=== PATIENT | male | born 1990 | race Caucasian/White ===

== ENCOUNTER 2016-08-31 07:44 | Emergency (ER) | payer SELFPAY ==
[2016-08-31] MEDS ORDERED: Tetan/Diph/Pertus SYR(Tdap)* 0.5 ML SYR(BOOSTRIX) use SYR IM ONE (08:10)
--- NOTE | 2016-08-31 08:41 | RAD ---
INDICATION: Fish tank versus right wrist and forearm COMPARISON: None. TECHNIQUE: 4 views right wrist. REPORT: On the oblique view of the wrist there is multiple punctate radiodense foci that could be compatible with foreign bodies in a laceration. On the AP view of the wrist there is a triangular radiographic focus overlying the site of an apparent skin laceration. This could represent a foreign body in this clinical setting. Also depicted on the AP view of the wrist there is a tiny linear focus between the proximal portions of the second and third metacarpals which could also represent a small foreign body in this clinical setting. The visualized bones are properly aligned and well corticated. The joint spaces are normal.There is no fracture, dislocation or other focal osseous abnormality. IMPRESSION: Potential subcutaneous foreign bodies as described above.
[2016-08-31 10:17] VITALS: BP 113/85
--- NOTE | 2016-08-31 10:25 | ED ---
Darion Diaz SooYoung, scribed for Bijan Mitchell MD on 08/31/16 at 0802 . Laceration/Wound HPI - HPI Summary HPI Summary: A 25 y/o M presents to ED with c/o lac to R forearm onset approx 30 minutes [employer]. Pt was at work at [employer] and lifting a glass aquarium into a dumpter when it shattered and cut his arm. Associated sx: numbness to R thumb. He is able to wiggle his fingers. R-hand dominant. He doesn't believe there's any glass or foreign bodies in the cut. He is unsure of his last tetanus. Pt came in with his arm wrapped in a towel. - History of Current Complaint Stated Complaint: RT HAND LAC Time Seen by Provider: 08/31/16 07:58 Hx Obtained From: Patient, Other: - co-worker Onset/Duration: Sudden Onset, Lasting Minutes, Still Present Timing: Constant Onset Severity: Mild Current Severity: Mild Pain Intensity: 3 Pain Scale Used: 0-10 Numeric Associated Signs & Symptoms: Numbness - R thumb, Pain Related Hx: Occupational Injury, Dominant Hand (Right) - Allergy/Home Medications Allergies/Adverse Reactions: Allergies Allergy/AdvReac Type Severity Reaction Status Date / Time No Known Allergies Allergy Verified 10/18/14 03:15 PMH/Surg Hx/FS Hx/Imm Hx Previously Healthy: Yes Respiratory History: Denies: Hx Chronic Obstructive Pulmonary Disease (COPD) Opthamlomology History: Denies: Hx Legally Blind Infectious Disease History: No Infectious Disease History: Denies: Traveled Outside the [place] in Last 30 Days - Family History Known Family History: Positive: None Negative: Cardiac Disease, Hypertension, Diabetes - Social History Occupation: Employed Full-time Lives: With Family Alcohol Use: Occasionally Hx Substance Use: No Substance Use Type: Reports: None Hx Tobacco Use: No Smoking Status (MU): Never Smoked Tobacco Review of Systems Negative: Fever Positive: Other - pos: numbness to R thumb Positive: Other - lac to R forearm All Other Systems Reviewed And Are Negative: Yes Physical Exam - Summary Physical Exam Summary: The patient is well-nourished in no acute distress and in no acute pain. The skin is warm and dry and skin color reflects adequate perfusion. HEENT: The head is normocephalic and atraumatic. The pupils are equal and reactive. The conjunctivae are clear and without drainage. Nares are patent and without drainage. Mouth reveals moist mucous membranes and the throat is without erythema and exudate. The external ears are intact. The ear canals are patent and without drainage. The tympanic membranes are intact. Neck is supple with full range of motion and non-tender. There are no carotid bruits. There is no neck vein distension. Respiratory: Chest is non-tender. Lungs are clear to auscultation and breath sounds are symmetrical and equal. Cardiovascular: Heart is regular rate and rhythm. There is no murmur or rub auscultated. There is no peripheral edema and pulses are symmetrical and equal. Musculoskeletal: DECREASED SENSATION DISTAL TO WOUND. Motor function intact with THUMB FLEXION AND EXTENSION, ABDUCTION/ADDUCTION; RADIAL and ULNA DEVIATION. there are good RADIALand ulna PULSES. the wound is IRREGULAR and STELLATE which measures 4CM LACERATION ON RADIAL ASPECT OF FOREARM DISTALLY, PROXIMAL TO THUMB; afars TO BE ABOUT 1CM WIDE; GOOD CAPILLARY REFILL. there was no tendon involvement and there was no foreign body noted. Neurological: Patient is alert and oriented to person, place and time. Psychiatric: The patient has an appropriate affect and does not exhibit any anxiety or depression. Triage Information Reviewed: Yes Vital Signs On Initial Exam: Initial Vitals Temp Pulse Resp BP Pulse Ox 97.6 F 60 20 126/72 98 08/31/16 07:46 08/31/16 07:46 08/31/16 07:46 08/31/16 07:46 08/31/16 07:46 Vital Signs Reviewed: Yes Procedures - Laceration/Wound Repair 1 Location: upper extremity - R forearm Description: Stellate Anesthesia: Local, 1.0% Length, Depth and Shape: 3cm x 1/2 cm Betadine Prep?: Yes Irrigated w/ Saline (ccs): 100 Laceration/Wound Explored: no foreign body removed Closure: Single Layer Suture Type: Prolene - 4-0 Number of Sutures: 3 - vertical mattress Layer Closure?: No Sterile Dressing Applied?: No Diagnostics - Vital Signs Vital Signs Temp Pulse Resp BP Pulse Ox 08/31/16 07:48 97.6 F 66 20 126/72 98 08/31/16 07:46 97.6 F 60 20 126/72 98 - Laboratory Lab Statement: Any lab studies that have been ordered have been reviewed, and results considered in the medical decision making process. - Radiology WRIST XR Xray Interpretation: No Acute Changes Radiology Interpretation Completed By: Radiologist Laceration Repair Course/Dx - Course Course Of Treatment: Pt is a 25 y/o M presenting with lac to R forearm sustained at work. Lifted a glass aquarium into a dumpter when it shattered and cut his arm. Associated sx: numbness to R thumb. He is able to wiggle his fingers. R-hand dominant. Unknown if UTD on tetanus. Pt given tdap in ED. Wrist XR shows "Potential subcutaneous foreign bodies as described above." See full [facility] in [facility]. Lac repair performed by HUY Gee. Antonio D/C home , remove stiches in 10-14 days. - Differential Dx Differental Diagnoses: Foreign Body, Laceration - Clinical Impression Provider Diagnoses: 4 CM R WRIST LACERATION WITH REPAIR Discharge - Discharge Plan Condition: Stable Disposition: HOME Patient Education Materials: Care For Your Stitches (ED), Laceration (ED) Referrals: Non Staff,Doctor [Primary Care Provider] - [facility] [place] [facility] [Outside] Additional Instructions: Stitches will need to be taken out in 10-14 days, you can do so at your primary care provider, Urgent Care, or at the ED. Keep the dressing in place for the next 48 hours. Cleanse the wound 2x a day with soap and water. Apply triple antibiotic ointment. Wear the dressing during the day, and air dry at night. The documentation as recorded by the Darion reyna SooYoung accurately reflects the service I personally performed and the decisions made by me, Bijan Mitchell MD.
== END 2016-08-31 10:17 | disposition home or self-care (01) ==
LOC: ED 07:44
DX: S61.511A Laceration without foreign body of right wrist, initial encounter (principal); W45.8XXA Other foreign body or object entering through skin, initial encounter; Y93.9 Activity, unspecified; Y92.9 Unspecified place or not applicable; Y99.9 Unspecified external cause status
CPT/HCPCS: 12002; 90471; 90715; 99282

== ENCOUNTER 2016-09-02 13:35 | Emergency (ER) | payer SELFPAY ==
[2016-09-02 13:40] VITALS: BP 126/61
--- NOTE | 2016-09-02 14:01 | ED ---
Laceration/Wound HPI - HPI Summary HPI Summary: 25M presents for wound check of right wrist laceration. He had sutures placed two days and wound is healing well. He admits to numbness into his thumb that was present with initial injury as saw patient then and placed sutures. He has full ROM of fingers and denies any weakness. He is not dropping anything. He denies any tingling. He has been washing the area and changing the bandage daily. He denies any fever or spreading redness. - History of Current Complaint Stated Complaint: RT WRIST WOUND RECHECK Time Seen by Provider: 09/02/16 13:42 Pain Intensity: 0 - Allergy/Home Medications Allergies/Adverse Reactions: Allergies Allergy/AdvReac Type Severity Reaction Status Date / Time No Known Allergies Allergy Verified 10/18/14 03:15 PMH/Surg Hx/FS Hx/Imm Hx Endocrine/Hematology History: Denies: Hx Anticoagulant Therapy Respiratory History: Denies: Hx Chronic Obstructive Pulmonary Disease (COPD) Sensory History: Denies: Hx Legally Blind Opthamlomology History: Denies: Hx Legally Blind Infectious Disease History: Denies: Traveled Outside the [place] in Last 30 Days - Family History Known Family History: Positive: None Negative: Cardiac Disease, Hypertension, Diabetes - Social History Alcohol Use: Occasionally Hx Substance Use: No Substance Use Type: Reports: None Hx Tobacco Use: No Smoking Status (MU): Never Smoked Tobacco Review of Systems Negative: Fever Negative: Chest Pain Negative: Shortness Of Breath Positive: Other - numbness thumb Positive: Other - healing laceration All Other Systems Reviewed And Are Negative: Yes Physical Exam Triage Information Reviewed: Yes Vital Signs On Initial Exam: Initial Vitals Temp Pulse Resp BP Pulse Ox 98.5 F 63 17 126/61 100 09/02/16 13:37 09/02/16 13:37 09/02/16 13:37 09/02/16 13:37 09/02/16 13:37 Vital Signs Reviewed: Yes Appearance: Positive: Well-Appearing Skin: Positive: Other - healing laceration present on right wrist with sutures and two healing abrasions on right wrist Head/Face: Positive: Normal Head/Face Inspection Eyes: Positive: Normal, Conjunctiva Clear Respiratory/Lung Sounds: Positive: Clear to Auscultation, Breath Sounds Present Cardiovascular: Positive: Normal, RRR Musculoskeletal: Positive: Strength/ROM Intact - fingers and wrist, Other - capillary refill< 2 secs, good pulses, good bull bucker strength, able to oppose all fingers, complains of numbness along right thumb and half of right index finger Diagnostics - Vital Signs Vital Signs Temp Pulse Resp BP Pulse Ox 09/02/16 13:37 98.5 F 63 17 126/61 100 - Laboratory Lab Statement: Any lab studies that have been ordered have been reviewed, and results considered in the medical decision making process. Laceration Repair Course/Dx - Course Course Of Treatment: 25M presents for wound check of right wrist laceration. He had sutures placed two days and wound is healing well. He admits to numbness into his thumb and half of index finger that was present with initial injury as saw patient then and placed sutures. He has full ROM of fingers and denies any weakness. He is not dropping anything. laceration is healing well on exam. numbness is along radial nerve but only in fingers. no evidence of tendon damage. explained numbness could continue for some time. patient understands and agrees with plan - Differential Dx Differental Diagnoses: Dehiscence, Healing Wound, Other - carpel tunnel, - Clinical Impression Provider Diagnoses: Healing laceration Discharge - Discharge Plan Condition: Good Disposition: HOME Referrals: Non Staff,Doctor [Primary Care Provider] - Additional Instructions: Change bandage once a day Have sutures removed in 10 days Follow up with primary Return to ED if develop any signs of infection or any new or worsening symptoms
== END 2016-09-02 14:15 | disposition home or self-care (01) ==
LOC: ED 13:35
DX: S61.511D Laceration without foreign body of right wrist, subsequent encounter (principal); W27.8XXD Contact with other nonpowered hand tool, subsequent encounter; Y92.89 Other specified places as the place of occurrence of the external cause; Y99.9 Unspecified external cause status
CPT/HCPCS: 99281